=== PATIENT | female | born 1970 | race Caucasian/White ===

== ENCOUNTER 2016-11-23 07:26 | Outpatient (CLI) | payer BC ==
--- NOTE | 2016-11-23 10:47 | Fluoroscopy Report ---
SMALL BOWEL SERIES: History: Anemia. Barium passes through the small bowel in a normal transit time. There is a normal mucosal pattern with no contour abnormalities identified. IMPRESSION: Normal study.
== END 2016-11-23 07:27 | disposition home or self-care (01) ==
LOC: FLUORO 07:26
PROVIDERS: ATTEND Internal Medicine Gastroenterology
DX: D64.9 Anemia, unspecified (principal)
CPT/HCPCS: 74250